=== PATIENT | male | born 1985 | race Caucasian/White ===

== ENCOUNTER 2022-07-24 13:35 | Emergency (ER) | payer SELFPAY ==
[~2022-07-24] VITALS: Ht 172.7 cm; Wt 69.0 kg
[2022-07-24 13:44] VITALS: BP 136/89
[2022-07-24] MEDS ORDERED: LIDOCAINE HCL/EPINEPHRINE 1%-EPI 1:100,000 20 ML VIAL INFIL ONE (15:15)
[2022-07-24] MEDS ORDERED: BACITRACIN ZINC OINT UDPKT TOP ONE (15:15)
[2022-07-24] MEDS ORDERED: LIDOCAINE HCL 1% 20ML VIAL (Pyxis) INJ INL NR (15:30)
== END 2022-07-24 16:11 | disposition home or self-care (01) ==
LOC: ER 13:35
DX: S01.81XA Laceration without foreign body of other part of head, initial encounter (principal); W22.8XXA Striking against or struck by other objects, initial encounter; Y93.89 Activity, other specified; Y92.89 Other specified places as the place of occurrence of the external cause; Y99.8 Other external cause status
CPT/HCPCS: 99282; J3490